=== PATIENT | male | born 1995 | race Caucasian/White ===

== ENCOUNTER 2018-05-18 17:14 | Emergency (ER) | payer SELFPAY ==
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
== END 2018-05-18 19:47 | disposition home or self-care (01) ==
LOC: ER 17:14
DX: S20.212A Contusion of left front wall of thorax, initial encounter (principal); F17.210 Nicotine dependence, cigarettes, uncomplicated; Y08.89XA Assault by other specified means, initial encounter; Y93.9 Activity, unspecified; Y92.9 Unspecified place or not applicable; Y99.9 Unspecified external cause status
CPT/HCPCS: 71045; 99284

== ENCOUNTER 2018-06-26 22:18 | Emergency (ER) | payer SELFPAY ==
[2018-06-26 23:40] LABS: Barbiturates NEGATIVE (NEGATIVE); Benzodiazepines NEGATIVE (NEGATIVE); Cocaine NEGATIVE (NEGATIVE); METHAMPHETAM NEGATIVE (NEGATIVE); Methadone NEGATIVE (NEGATIVE); Opiates NEGATIVE (NEGATIVE); Phencyclidine NEGATIVE (NEGATIVE); THC Cannibis NEGATIVE (NEGATIVE)
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
[2018-06-27 00:17] LABS: Absolute Lymphocytes (CBC) 1.4 K/uL (0.7-4.9); Absolute Monocytes 0.3 K/uL (0.1-1.3); Absolute Neutrophil 10.8 K/uL (1.8-8.0); Basophils % 0.2 % (0-1.3); Eosinophils % 0.3 % (0-4.4); Hematocrit 47.8 % (39.6-49.0); Lymphocytes % 10.9 % (15.3-44.8); MCH 29.7 pg (27.0-35.0); MCV 88.1 fL (80-100); MPV 10.6 fL (7.6-11.3); Monocytes % 2.5 % (3.3-12.3); RBC Red Blood Cell Count 5.42 M/uL (4.33-5.43)
[2018-06-27 00:32] LABS: Protime INR 1.05
[2018-06-27 00:39] LABS: ALT/SGPT 26 U/L (12-78); AST/SGOT 20 U/L (15-37); Albumin 4.7 g/dL (3.4-5.0); Alcohol Serum/Plasma 168 mg/dL (<3); Alkaline Phosphatase 87 U/L (45-117); BUN Blood Urea Nitrogen 13 mg/dL (7-18); Bicarbonate 23 mmol/L (21-32); Bilirubin Direct 0.2 mg/dL (0-0.2); Bilirubin Total 0.4 mg/dL (0.2-1.0); Glucose Level 93 mg/dL (74-106); Lipase 63 U/L (73-393); Potassium 3.6 mmol/L (3.5-5.1); Protein, Total 8.1 g/dL (6.4-8.2); Sodium Level 143 mmol/L (136-145)
[2018-06-27 00:57] LABS: Blood Morphology Comment NOT SEEN (NOT SEEN); Platelet Estimate ADEQ
--- NOTE | 2018-06-27 08:30 | EKG ---
Test Date: 2018-06-26 Test Time: 22:19:06 [employer] Offset Press Operator: MEASUREMENT RESULTS: Intervals: Rate: 72 WV: 130 QRSD: 94 QT: 398 QTc: 435 [place]: P: -22 WV: 130 QRS: 78 T: 61 INTERPRETIVE STATEMENTS: Normal sinus rhythm with sinus arrhythmia Normal ECG Compared to ECG 05/27/2016 03:36:54 No significant changes Electronically Signed On 06-27-18 08:29:57 CDT by Moise Lake
--- NOTE | 2018-06-27 09:49 | RAD REPORT ---
EXAM DESCRIPTION: Prabhu Single View06/26/2018 10:39 pm CLINICAL HISTORY: cough COMPARISON: May 2018 FINDINGS: The lungs appear clear of acute infiltrate. The heart is normal size A nasogastric tube is present within the stomach IMPRESSION: No acute abnormalities displayed
--- NOTE | 2018-06-27 11:01 | RAD REPORT ---
EXAM DESCRIPTION: CT - Head Brain Wo Cont - 06/27/2018 4:25 am CLINICAL HISTORY: Declining state/unresponsive COMPARISON: 2016 TECHNIQUE: Computed axial tomography of the head was obtained. IV contrast was not requested. Preliminary report was generated by virtual radiologic a review prior to this dictation All CT scans are performed using dose optimization technique as appropriate and may include automated exposure con trol or mA/KV adjustment according to patient size. FINDINGS: An intracranial bleed is not seen . The ventricles are normal in caliber. No extra-axial fluid collection is noted. Moderate low-density areas within periventricular, deep and subcortical white matter likely represent ischemic changes secondary to small vessel disease. Fluid within the sinuses/ mastoids is not seen. Mucoperiosteal thickening of the maxillary sinuses bi laterally is present IMPRESSION: No acute intracranial abnormality is seen. If patient's symptoms persist MRI of the bra in would be recommended.
== END 2018-06-27 01:08 | disposition home or self-care (01) ==
LOC: ER 22:18
DX: F10.129 Alcohol abuse with intoxication, unspecified (principal); Y90.6 Blood alcohol level of 120-199 mg/100 ml
CPT/HCPCS: 36415; 51702; 70450; 71045; 80048; 80076; 80307; 80320; 80329; 82962; 83690; 85025; 85610; 85730; 93005; 99291; 99292